=== PATIENT | female | born 1955 | race Caucasian/White ===

== ENCOUNTER 2016-06-28 10:23 | Observation (INO) | payer OTHER ==
[2016-06-28] VITALS (21 sets, daily range): BP systolic 119–193; BP diastolic 62–132; PULSE 67–108; RESP 6–21; O2SAT 71–98
[~2016-06-28] VITALS: Ht 167.6 cm; Wt 108.3 kg
[2016-06-28] MEDS: Lactated Ringer's 1,000 ML IV SCH ×2 (05:00→12:02)
[~2016-06-28 10:23] MED LIST: ASCO100089 PO; ASPI325T32 PO; ATOR20TA PO; CHOL100045 PO; CHONDROITIN PO; CeFAZolin Inj 2 GM in IV Premix 1 EACH IV ONE; ECHI380C PO; GLUC100016 PO; LEVO100T6 PO; METH4TAB PO; MULT-1018 PO; MV,C400T2 PO; OMEG-38 PO; OMEP20TA24 PO; PYR50 PO; SERT100T9 PO; UBID10CA9 PO
[2016-06-28] MEDS ORDERED: CeFAZolin Inj 2 gm / 50mL D5W IV ONE (10:53)
--- NOTE | 2016-06-28 11:30 | PCM.HPANE ---
Patient Data Date of Service: Jun 28, 2016 Surgeon Admitting Provider: Attending Provider:Gianfranco Monroe MD Primary Care Physician:Nati Melendez Other Provider: Reason for Visit Right Rotator Cuff Tear Ht/WT & BMI Height (Feet): 5 Height (Inches): 6 Weight (Kilograms): 102 Body Mass Index 36.00 Allergies Coded Allergies: TAPE (Verified Allergy, Severe, HIVES (ADHESIVE)-ALSO RXN TO PAPER TAPE, 06/23/16) simvastatin (Verified Adverse Reaction, Severe, MYALGIAS, 06/23/16) Past Anesthesia History Anesthesia History: Denies:: Anesthesia Reactions, Malignant Hyperthermia Diabetes History Hx Diabetes?: No MRSA MRSA: No Medications Blood Thinner: Aspirin Hypertension Medication: No Home Meds Incl Beta Patrice: No Reported Medications Methylprednisolone (Medrol)4 Mg Tablet4 Mg PO DIRECTED PRN For Pain Ref 0 06/23/16 Cholecalciferol (Vitamin D3) (Vitamin D)1,000 Unit Capsule2,000 Unit PO DAILY # 1 BOTTLE Ref 0 06/23/16 Ascorbic Acid (Vitamin C)1,000 Mg Tab.chew1,000 Mg PO DAILY Ref 0 06/23/16 Pyridoxine (Vitamin B-6)50 Mg Kdhzsn05 Mg PO DAILY 06/23/16 Sertraline HCl (Sertraline)100 Mg Farzvn930 Mg PO DAILY 30 Days Ref 0 06/23/16 Omeprazole Magnesium (Prilosec Otc)20 Mg Tablet.dr20 Mg PO DAILY #1 PKG Ref 0 06/23/16 Levothyroxine 100 Mcg Lqnivh100 Mcg PO DAILY For Thyroid Replacement Ref 0 06/23/16 Glucosamine Sulfate 2Kcl (Glucosamine)1,000 Mg Tablet3,000 Mg PO DAILY 06/23/16 [place]-3/Dha/Epa/Fish Oil (Fish Oil 1,000 mg Softgel)1 Each Capsule1 Each PO DAILY 06/23/16 Mv,Ca,Min/FA/Herbal No.157 (Estroven Max Strength Caplet)400 Mcg Wtkdum958 Mcg PO HS 06/23/16 Echinacea (Echinacea Herb)380 Mg Skfnyxu328 Mg PO DAILY 06/23/16 Multivitamin (Multi Vitamin Daily)1 Each Tablet1 Each PO DAILY 30 Days Ref 0 06/23/16 Ubidecarenone (Coenzyme Q10)10 Mg Yzdlnuw89 Mg PO DAILY 06/23/16 [Chondroitin] No Conflict Check2,400 Mg PO DAILY 06/23/16 Atorvastatin (Lipitor)20 Mg Degsmx73 Mg PO DAILY Ref 0 06/23/16 Aspirin 325 Mg Tkndmg946 Mg PO DAILY #1 BOTTLE 06/23/16 Discontinued Reported Medications Cholecalciferol-Expunged Drug, Do Not Renew! (Vitamin D3-Expunged Drug, Do Not Renew!)1,000 Unit Tab.chew1,000 Unit PO DAILY 05/27/12 Multivitamin (Multi-Vitamin Daily)1 Each Tablet1 Each PO DAILY 05/27/12 Echinacea 167 Mg Pocwcv230 Mg PO DAILY 05/27/12 Glucosa Schwab 2KCL/Chondroitin Schwab (Gnp Glucosamine Chondroitin Tb)1 Each Tablet1 Each PO DAILY 05/27/12 Ascorbic Acid-Expunged Drug, Do Not Renew! (Vitamin C-Expunged Drug, Do Not Renew!)500 Mg Higwzq225 Mg PO DAILY #30 TAB 05/27/12 IBUPROFEN-Expunged Drug, Do Not Renew! 200 Mg Tablet1-2 Tab PO Q 4-6HRS PRN #20 TAB INSTRUCTED TO STOP 05/27/12 Aspirin-Expunged Drug, Do Not Renew! 81 Mg Tab.chew81 Mg PO DAILY INSTRUCTED TO STOP 05/27/12 Simvastatin-Expunged Drug, Choose New Med! 40 Mg Bfcmmf65 Mg PO HS INPATIENT MAX DOSE 40 MG 05/22/12 Sertraline-Expunged Drug, Choose New Med! 50 Mg Nsv829 Mg PO DAILY 05/22/12 Omeprazole-Expunged Drug, Do Not Renew! 20 Mg Capcr20 Mg PO DAILY 05/22/12 Levothyroxine-Expunged Drug, Do Not Renew! (Levoxyl-Expunged Drug, Do Not Renew! )100 Mcg Ihmfwc754 Mcg PO DAILY 05/22/12 History History of ENT Problems?: Yes Other HEENT Pertinent History: S/P T&A Hx of Heart Problems?: Yes Cardiovascular History: Positive for:: Chest Pain (08/2013 TESTING ESSENTIALLY NEG) Hypertension (HYPERLIPIDEMIA) Denies:: Irregular Heartbeat Other Cardiac History: C/OF BRUISING EASILY Hx of Respiratory Problem?: Yes Respiratory History: Positive for:: Use of C-PAP Machine (LEE ANN+ W/ CPAP (NOT CURRENTLY USING) SLEEP STUDY 10/2009) Hx Neurologic Problems?: Yes Hx of GI Problems?: Yes Gastrointestinal History: Positive for:: Gastroesphageal Reflux Heartburn Hepatitis (HX HEPATITIS A ANTIBODY +) Liver Disease (FATTY LIVER) Denies:: Gastrointestinal Bleeding (HX PUD) Hx of Problems?: No Female Hx: Positive for:: Endometriosis Problems with Breasts? (S/P EXC RT BREAST CYST, RT BREAST BX/MASTECTOMY FOR CA ) Denies:: Currently Skin History: Denies:: History Skin Disorders? Pressure Ulcers Hx Musculoskeletal Problems?: Yes Musculoskeletal History: Positive for:: Musculoskeletal Trauma (RT ROTATOR CUFF RPR=CURRENT PROBLEM) Osteoarthritis (OSTEOPENIA) Hx of Psycho/Social Problems?: Yes Psycho Social History: Positive for:: Hx Depression Hx Surgeries?: Yes (RT BREAST CYST EXC.,HYST,RT MASTECTOMY,BTL,TONSILLECTOMY, LT CTR) Hx Any Other Health Problems?: Yes Other History: Positive for:: Cancer (RT BREAST 2007) Thyroid Disease Denies:: Endocrine Disease Hospitalization History Blood Transfusions: Denies:: Blood Transfusions Hx Diabetes: No Hx Alcohol Use: NoHx Substance Use: NoHave You Smoked inLast 12 mo: NoApprox How Many Cigarettes/day: 20YR HX Stop/Bang Treated for Sleep Apnea?: No Do You Have a CPAP Machine?: No S-Snoring: Do You Snore Loudly: No T-Tired: feel tired, fatigued: Yes O-Obsered: Observed not breath: Yes P-Blood Pressure: treated: Yes B- Body Mass Index > 35 kg/m2: Yes A- Age over 50: Yes N- Neck Large Circumference: Yes G- Gender Male: No LEE ANN Total Score: 6 LEE ANN Risk Assessment: Low Risk, <3 Yes Risk Assessment Category Category 1A: Patient has history of documented sleep apnea, and HAS NOT received any narcotic, sedative or anesthesia administration during this stay. Category 1B: Patient has history of documented sleep apnea, and HAS received any narcotic , sedative or anesthesia administration during this stay Category 2: Patient has SUSPECTED Obstructive Sleep Apnea, and HAS received any narcotic , sedative or anesthesia administration during this stay. Category 3: Patient has SUSPECTED Obstructive Sleep Apnea and HAS NOT received narcotic, sedative or anesthesia administration during this stay. Category 4: Outpatient in Procedural Areas with known sleep apnea or who screen positive for High Risk via the STOP/BANG questionnaire. Exam Exam Vital Signs Vital Signs Date Time Temp Pulse Resp B/P Pulse Ox O2 Delivery O2 Flow Rate FiO2 06/28/16 11:11 36.6 67 16 140/81 98 Room Air General Appearance: Alert, Oriented X3, Cooperative HEENT/AIRWAY: MP 2, Neck Movement Lungs: Clear to Auscultation, Normal Air Movement Heart: Normal S1, Normal S2, No Murmurs/Rubs/Gallops Plan Impression Patient chart reviewed, patient interviewed and anesthestic plan with risks, benefits, and alternatives discussed, and informed consent obtained. NPO Status: WATER AT 0830 ASA Physical Status: ASA2 Mod Systemic Disease Anesthetic Plan: GA, Regional Block ([facility]/Dr. Neumann) Bene/Risks/Altern/Consents: Yes HP Complete Prior to Induction: Yes Juan Luis Moise DO Jun 28, 2016 11:30
[2016-06-28] MEDS ORDERED: Ketorolac 15 mg/mL Inj IVPUSH ONE (11:50)
[2016-06-28] MEDS ORDERED: HYDROcodone-APAP 5-325 mg Tablet PO PRN (11:50)
--- NOTE | 2016-06-28 11:53 | PCM.ORTHOP ---
Orthopedic Operative Report Date of Service: Jun 28, 2016 Pre Operative Diagnosis right shoulder rotator cuff tear, impingement syndrome, biceps tenosynovitis, acromioclavicular joint arthritis Post Operative Diagnosis right shoulder rotator cuff tear, impingement syndrome, biceps tenosynovitis, acromioclavicular joint arthritis Procedure Right shoulder arthroscopy, rotator cuff repair, biceps tenodesis, subacromial decompression, distal clavicle excision, partial synovectomy Surgeon Surgeon: Gianfranco Monroe MD Assistants: Jerad Castellanos Indication for Procedure right shoulder rotator cuff tear Findings Per dictation Details of Procedure ATTENDANT SELF SERVICE STORE SURGEON: During the operation, the services of physician certified surgical assistant were medically indicated and necessary to provide exposure of the operative site for the surgical procedure and to maintain the limb in a proper position to carry out the operation safely and efficiently. Without the qualified assistant community manager being present, it would have extended the operative procedure and made the procedure technically more difficult to perform. INDICATIONS: The patient is Marina Cordero who is a 60 year old female. The risks, benefits, and alternatives of surgery were discussed with the patient. The risks included but were not limited to infection, bleeding, damage to vessels and nerves, loss of motion, continued pain, complications due to anesthesia including myocardial infarction, stroke, , etc. The patient stated understanding of the nature of the surgical procedure and gave written and verbal consent to proceed. PROCEDURE: The patient was brought into the operating room and placed supine on the operating room table. A interscalene block was placed in the right shoulder for postoperative pain management, followed by the administration of general anesthesia. . The patient was then placed into the lateral decubitus position with the right side up. An axillary role was placed and the legs were padded as necessary to avoid pressure points. The patient was maintained in position with a beanbag evacuation device. A thorough examination of the right shoulder under anesthesia was performed. The patient had 150 degrees of forward elevation and 130 degrees of abduction. In 90 degrees of abduction there was 70 degrees of external rotation and 70 degrees of internal rotation. The shoulder was stable to load-shift testing. The right upper extremity was then prepped and draped in the usual fashion. The arm was suspended with a well-padded sleeve with eight/ten pounds of balanced suspension in the arthroscopic position. A standard posterior portal was made inferior and medial to the posterior corner of the acromion. The incision was made only through skin. The trocar was advanced through the soft tissue with a blunt-tipped obturator. This was inserted into the glenohumeral joint without difficulty. The 4 mm arthroscope was placed through the cannula and attached to the video monitor system. Inflow was achieved using the arthroscopic pump. The pressure was maintained at 35-40 mm of mercury throughout the entire procedure. Once the arthroscope confirmed visualization within the shoulder joint, it was advanced anteriorly into the rotator interval beneath the biceps tendon. A Wissinger lena was then used to create the anterior portal from inside-out. A second anterior stab wound incision was made only through skin and an anterior cannula was placed. A routine arthroscopic survey was begun. Survey: [id number] 2cm X 2cm anterior rotator cuff tear, The biceps was synovitic and was tenotomized and tenodesed to the rotator cuff in the subacromial space. The arm was then placed in the bursoscopy position. Complex surgical procedure: This was an extremely complex surgical procedure which took approximately 30-40 % longer to complete than a standard repair. Without the use of a qualified business banking sales assistant, this surgical procedure would have taken even considerably longer and been unable to be performed arthroscopically. Jacques procedure: Within the subacromial space there was marked fraying on the undersurface of the coracoacromial ligament consistent with impingement. A decision was thus made to proceed with arthroscopic subacromial decompression. Using an RF wand and a motorized shaver the coracoacromial ligament was recessed from the anterior acromial edge. An orientation trough was made along the lateral margin of the acromion, from the anterior corner back to the posterior margin of the AC joint. A sequential subacromial smoothing was carried out, removing approximately 8mm mm of bone corresponding to the preoperative radiographs. Once completed, the AC joint capsule was opened. There was inferior spurring as well as synovitis and arthritic changes at the AC joint and a decision was made to proceed with distal clavicle excision. Using a motorized bur working initially from posteriorly and then anteriorly, the outer 10 mm of the distal clavicle were excised. The arthroscope was then positioned anteriorly within the AC resection site confirming an excellent level of resection. Single anchor supraspinatus repair Attention was then directed to the rotator cuff repair. Using the motorized shaver from both the anterolateral portal and the posterior portal, the free edge of rotator cuff was debrided. The anatomic neck of the tuberosity was then gently abraded, using the motorized shaver and exposing good bone for healing. Via an accessory anterolateral portal, a triple-loaded anchor was inserted, with excellent fixation purchase. The three stitches were then transported across the rotator cuff using a shuttling technique, spacing the sutures equidistantly. Once the sutures were all passed, they were sequentially tied, using SMC knots and alternating half-hitches, which gave excellent loop and knot security. This reduced the rotator cuff back to the anatomic neck. A microfracture was then performed laterally on the tuberosity creating a crimson duvet to aid in tendon healing. The arm was placed through range of motion and the rotator cuff and humeral head moved well as a unit. There was no further evidence for impingement. The subacromial space was irrigated with an additional 500 mL lactated Ringer solution. Excess fluid was drained. Attention was then directed towards biceps tenodesis. The anterior limb of the anchor was used to incorporate the biceps to the bone and the rotator cuff tear. The arm was placed through a range of motion and the rotator cuff and humeral head moved well as a unit. There was no further evidence of impingement. The subacromial space was irrigated with an additional liter of lactated Ringer s solution and excess fluid was drained. The arthroscopic portals were closed with #4-0 Nylon and Steri-Strips. A dry sterile dressing was applied, followed by a neutral rotation sling. The patient was awakened in the operating room and transported to the recovery room in satisfactory condition. The patient appeared to tolerate the procedure well. There were no complications noted. Grafts, Implants: Implants-See Implant Record Complications There were no periprocedural complications identified. Condition Stable Anesthetic Administered: GA Catheters: None Output, Estimated Blood Loss: 5 Blood Admin during surgery: No Surgical Cast or Splint: Other Surgical Specimen Removed: No Specimen sent to Pathology: No copies to: Gianfranco Monroe MD, Christopher L MD Jun 28, 2016 11:53 repair. While visualizing from laterally, a spectrum suture hook was then used from posteriorly to penetrate across the rotator cuff, first posteriorly and then anteriorly. A suture Shuttle Relay system was then used to pass a #1 PDS, #2 Orthocord suture across the rotator cuff tear. The defect in the rotator cuff was then closed using the suture by using a locking sliding knot, followed by alternating half-hitches. Two sutures were placed for this defect, repairing the tendon, closing the defect. Single anchor helix supraspinatus repair Attention was then directed to the rotator cuff repair. Using the motorized shaver from both the anterolateral portal and the posterior portal, the free edge of rotator cuff was debrided. The anatomic neck of the tuberosity was then gently abraded, using the motorized shaver and exposing good bone for healing. Via an accessory anterolateral portal, a triple-loaded anchor was inserted, with excellent fixation purchase. The three stitches were then transported across the rotator cuff using a shuttling technique, spacing the sutures equidistantly. Once the sutures were all passed, they were sequentially tied, using SMC knots and alternating half-hitches, which gave excellent loop and knot security. This reduced the rotator cuff back to the anatomic neck. A microfracture was then performed laterally on the tuberosity creating a crimson duvet to aid in tendon healing. The arm was placed through range of motion and the rotator cuff and humeral head moved well as a unit. There was no further evidence for impingement. The subacromial space was irrigated with an additional 500 mL lactated Ringer solution. Excess fluid was drained. Two anchor helix supraspinatus repair Attention was then directed to the rotator cuff repair. Using the motorized shaver from both the anterolateral portal and the posterior portal, the free edge of rotator cuff was debrided. The anatomic neck of the tuberosity was then gently abraded, using the motorized shaver and exposing good bone for healing. Via an accessory anterolateral portal, two triple-loaded were then inserted with excellent fixation purchase. The 6 stitches from these two anchors were then transported across the rotator cuff spacing the sutures equidistantly. Once the sutures were all passed, they were sequentially tied using SMC knots and alternative half-hitches which gave excellent loop and knot security. This reduced the rotator cuff back to the anatomic neck. A microfracture was then performed laterally on the tuberosity creating a crimson duvet to aid in tendon healing. The arm was then placed through a range of motion. The rotator cuff and humeral head moved well as a unit. There was no further evidence for impingement ARTHROSCOPIC BICEPS TENODESIS Attention was then directed towards biceps tenodesis. With the arthroscope in the lateral viewing portal a motorized shaver was introduced from the anterior working portal, identifying the Mehalik hitch at the top of the bicipital groove. A motorized shaver and VAPR wand was then used inferior from this, debriding the proximal humerus and identifying the falciform ligament. The biceps tendon was then identified and the bicipital sheath was opened using a probe. The groove did reveal evidence of synovitis in this area. With appropriate resting tension maintained using the Mehalik hitch, a percutaneous spinal needle was used to antony the resting position of the biceps tendon, as well as the position for tenodesis at the bottom of the inter-tubercular groove. A blue carli was then used to antony with tendon. An accessory anterior inferior portal was made approximately 6-7 cm from the anterior acromial margin under arthroscopic control. A asyy-dki-oqossq technique was used to spread the soft tissues down to the level of the bicipital groove. The long head of the biceps was then retrieved using a grasper and the tendon was brought out the wound. A #2 Double loaded Fiberwire Thee Net stitch was placed for a length of 1.5 cm from the blue carli marking position in the proximal biceps. This was then sized using the Arthrex biotenodesis set and measured mm. A mm reamer was then selected. A Canuflex cannula was then placed onto the bicipital groove. The biotenodesis guide wire was placed into the proximal humerus at the designated marking position corresponding to the appropriate tension and introduced just to the posterior cortex. The anterior cortex was then reamed using the reamer for a depth of 20 mm. 2 7/64 holes were then created approximately 1.5 cm inferior to the tunnel for suture passing. A Spectrum suture hook was placed through the inferior packing machine pilot can router hole and retrieved out the proximal tunnel. A shuttling technique was carried out passing one suture limb on either side of the long head of the biceps. Tension was then applied to the biceps sutures, reducing and docking the biceps intra-osseously. With the elbow in full extension and the hand in full supination tension was applied to reapproximate the anatomic resting length and the biceps was then secured using an arthroscopic Revo knot, tying the two limbs of the suture together over the biceps tendon. This gave excellent secure fixation. The biceps was then probed and had stable fixation. The arm was placed through a range of motion and the rotator cuff and humeral head moved well as a unit. There was no further evidence of impingement. The subacromial space was irrigated with an additional liter of lactated Ringer s solution and excess fluid was drained. The arthroscopic portals were closed with #4-0 Nylon and Steri-Strips. A dry sterile dressing was applied, followed by a neutral rotation sling. The patient was awakened in the operating room and transported to the recovery room in satisfactory condition. The patient appeared to tolerate the procedure well. There were no complications noted. Grafts, Implants: Implants-See Implant Record Complications There were no periprocedural complications identified. Condition Stable Anesthetic Administered: GA Catheters: None Output, Estimated Blood Loss: 5 Blood Admin during surgery: No Surgical Cast or Splint: Other Surgical Specimen Removed: No Specimen sent to Pathology: No copies to: Gianfranco Monroe MD, Christopher L MD Jun 28, 2016 11:53
[2016-06-28] MEDS ORDERED: fentaNYL-PF 50 mCg/mL 2 mL Inj ONE (12:14)
[2016-06-28] MEDS ORDERED: HYDROmorphone 2 mg/mL Inj ONE (12:14)
[2016-06-28] MEDS ORDERED: Ropivacaine-PF 0.5% 30 mL Inj INJ ONE (12:34)
[2016-06-28] MEDS ORDERED: Lactated Ringer's 500 ML IV PRN (12:54)
[2016-06-28] MEDS ORDERED: Lactated Ringer's 1,000 ML IV SCH (12:54)
[2016-06-28] MEDS ORDERED: Phenylephrine 10,000 mCg/mL Inj IVPUSH PRN (12:55)
[2016-06-28] MEDS ORDERED: fentaNYL-PF 50 mCg/mL 2 mL Inj IVPUSH PRN (12:55)
[2016-06-28] MEDS ORDERED: HYDROmorphone 1 mg/mL Inj IVPUSH PRN (12:55)
[2016-06-28] MEDS ORDERED: Dexamethasone 4 mg/mL Inj IVPUSH PRN (12:55)
[2016-06-28] MEDS ORDERED: Atropine 0.4 mg/mL Inj IVPUSH PRN (12:55)
[2016-06-28] MEDS ORDERED: Ondansetron 2 mg/mL 2 mL Inj IVPUSH PRN ×2 (12:55→16:35)
[2016-06-28] MEDS ORDERED: MetoCLOpramide 5 mg/mL 2 mL Inj IVPUSH PRN (12:55)
[2016-06-28] MEDS ORDERED: Labetalol 5 mg/mL 4 mL Inj IV PRN (12:55)
[2016-06-28] MEDS ORDERED: EPHEDrine Sulfate 50 mg/mL Inj IVPUSH PRN (12:55)
[2016-06-28] MEDS ORDERED: Lactated Ringer's 1,000 ML IV ONE (13:20)
--- NOTE | 2016-06-28 13:48 | PCM.ANEP1 ---
Post Anesthesia Phase 1 PACU Phase 1 Assessment Date of Service: Jun 28, 2016 Vital Signs Vital Signs Date Time Temp Pulse Resp B/P Pulse Ox O2 Delivery O2 Flow Rate FiO2 06/28/16 11:11 36.6 67 16 140/81 98 Room Air Anesthetic Administered: GA Level of Alertness: Drowsy, not talking LAO's with Equal Strength: No (Right ISB ) Pain: No Nausea or Vomiting: No Oxygen Delivery: Non-Rebreather Mask Lungs: Clear to Auscultation, Normal Air Movement Dermatome Level: Full Sensation (Limited by sensorimotor block from R ISB) Summary Nasal airway post extubation involving >10 minutes FiO2 1.0 ventilation in supine position with several expansion breaths for lung recruitment. Regular exchange with rate @14 for transport through 6l simple mask, PACU SPO2 79-88% with progressive improvement as patient emerges. NRB employed with SPO2 to 92% . CXR reveals ATX vs. PNA with substantially elevated R hemidiaphragm. Will continue attempt to wean O2 to determine O2 requirements in face of possible phrenic blockade with discussion with surgeon about potential for OBV admission for monitoring/O2 support. Juan Luis Moise DO Jun 28, 2016 13:48
--- NOTE | 2016-06-28 15:17 | DRSVH ---
PROCEDURE: X-RAY CHEST ONE VIEW, PORTABLE ([id number]) INDICATIONS: LOW O2 SATURATION TECHNIQUE: One view of the chest was acquired. COMPARISON: [facility], , CHEST 1VW (PORTABLE), 08/29/2013, 9:11. FINDINGS: Surgical changes and devices: None. Lungs and pleura: Streaky opacities in the lung bases bilaterally which could represent atelectasis o r pneumonia. Masslike opacities noted in the mesial aspect of the right upper lobe. Mediastinum: Mediastinal contours appear normal. Right hemidiaphragm is elevated. Heart size is norm al. Bones and chest wall: No suspicious bony lesions. Overlying soft tissues appear unremarkable. IMPRESSION: 1. Streaky opacities in lung bases bilaterally with atelectasis versus pneumonia. 2. Masslike opacity in the mesial aspect of the right upper lobe. Neoplastic process cannot be exclud ed. Recommend standard 2 view of the chest for further evaluation. 3. Right hemidiaphragm elevation. Dictated by: Karmen Gr MD, PhD on 06/28/2016 at 15:14 Approved by: Karmen Gr MD, PhD on 06/28/2016 at 15:15
[2016-06-28] MEDS ORDERED: Polyethylene Glycol (PEG) 17 Gm Powder PO PRN (16:35)
[2016-06-28] MEDS ORDERED: Alum-Mag Hydrox-Simeth 30 mL Suspension PO PRN (16:35)
--- NOTE | 2016-06-28 18:05 | PCM.ANEP2 ---
Post Anesthesia Evaluation ASA/CMS Post Anesthesia Date of Service: Jun 28, 2016 VS in Patient's Normal Range?: No (High O2 requirements under spontaneous ventilation; NRB requirement) Resp Stable; Airway Patent?: No CV Function & Hydration Stable: Yes Mental Status Recovered?: Yes Pain control Satisfactory?: Yes N/V Control Satisfactory?: Yes Additional Comments Patient requires stepdown placement for continuous SPO2 monitoring. Pt stable when NRB mask delivering High-FiO2 atmosphere, but desaturates when on RA. Juan Luis Moise DO Jun 28, 2016 18:05
--- NOTE | 2016-06-28 18:14 | NUR ---
Admit to [facility]: patient was transferred from OR recovery at about 1750. Pt is A&O X3. Tele: ST. HR 107. Denies CP or SOB. SpO2: 99-100% on non-rebreather. L AV PIV patent, NS TKO. R arm in brace. Reports 6/10 pain to R arm. Admit hospitalist notified of patient arrival to unit.
--- NOTE | 2016-06-28 20:26 | PCM.HPMED ---
Subjective Date of Service Jun 28, 2016 Primary Provider: Admitting Physician: Gianfranco Monroe MD Primary Care Physician: Nati Melendez Attending Physician: Gianfranco Monroe MD Chief Complaint: Acute respiratory failure following nerve block for right rotator cuff repair History of Present Illness: 60-year-old female came in for right rotator cuff repair she has as history of sleep apnea. Nerve block must been in proximity of left phrenic nerve, called postoperatively from PACU patient hypoxemic and or throw/anesthesia desire overnight admission and have requested the hospitalists admit the patient. This was planned as an outpatient procedure. Review of Systems: Patient was fine coming in this morning, a bit confused and painful postoperatively Gen.: No fevers chills weight loss weight gain Eyes: no visual disturbances or blurring vision HEENT: No nose/throat drainage, no pain in ears or throat, no hearing loss Lymph: No lymph nodes noted Cardiac: No chest pain, orthopnea, PND, palpitations , pedal edema or dyspnea on exertion Pulmonary: no cough, wheezing or bringing up of sputum GI: No anorexia nausea vomiting blood or black in the stool : no dysuria hematuria urinary frequency or decrease in urine output Musculoskeletal: Joint swelling no joint pain no new muscle aches or back pain Neuro: No syncope, seizures no loss of consciousness no new focal weakness, numbness or tingling Psychiatric: New new anxiety insomnia or depression Endocrine: No new heat or cold intolerances polyuria or polydipsia Hematology: No lymphadenopathy or easy bleeding or bruising noted skin: No new rashes, stasis dermatitis Allergies Coded Allergies: TAPE (Verified Allergy, Severe, HIVES (ADHESIVE)-ALSO RXN TO PAPER TAPE, 06/23/16) simvastatin (Verified Adverse Reaction, Severe, MYALGIAS, 06/23/16) Home Medications Atorvastatin 20 mg daily Aspirin 325 mg daily Levoxyl 100 g daily Prilosec 20 mg daily Seteraline 100 mg daily Multivitamin daily Fish oil daily Pyridoxine 50 mg daily Code Q10 10 mg daily Chondroitin daily PMH Hyperlipidemia Hypothyroid GERD Depression Breast cancer Endometriosis Surg Hx bilateral mastectomy 2006, Hysterectomy 1990s Salpingo-oophorectomy Revision for adhesions Family Hx coronary artery disease father and brothers Social patient quit tobacco in the 80s drinks minimally lives at home independently her at the bedside Social History Hx Alcohol Use: No Hx Substance Use: No Smoking Status: Former Smoker Exam Vital Signs Vital Sign - Last Date Time Temp Pulse Resp B/P Pulse Ox O2 Delivery O2 Flow Rate FiO2 06/28/16 18:09 105 06/28/16 18:08 36.9 21 148/101 98 Non-Rebreather 10.00 Exam Gen.- Obese female lying in bed somewhat drowsy but arousable to A+ O 3 no apparent distress. Eyes- open conjunctiva clear, pupils equal nonicteric Mouth- oral mucosa moist, no exudate dentition intact ENT- ears normal, nose normal Neck- supple/trach midline CVS- RRR no murmur or gallop Lungs- CTA GI- NABS/NT soft Musc- moving 4 no obvious deformity, right shoulder in dressing w/ post rotator repair stabilizing equipment in place Neuro- cranial nerves II through XII intact to gross examination, nonfocal Skin- warm and dry, no rashes/lesions/wounds noted Psych- pleasant and appropriate, Lab and Diagnostics Labs CBC, complete metabolic ordered as well as TSH X-Rays, CTs and MRIs Portable CXR concerning for possible pneumonia and other issues have ordered repeat PA and lateral as recommended. Concurrently reviewed by myself Assessment & Plan 60-year-old female admitted post-rotator cuff repair due to acute respiratory failure thought to be secondary to paralysis of phrenic nerve that was close to where nerve block was done for patient's procedure. Acute hypoxic respiratory failure- secondary to above and obese patient with obstructive sleep apnea. Observing overnight and giving supplemental oxygen as needed s/p r rotator cuff repair-per ortho LEE ANN- patient does not usually use her home CPAP but I am encouraging her to use it and she has not here lipids family history of CAD- continue atorvastatin from home, she can resume aspirin that is prophylactic on discharge GERD- continue PPI Depression/anxiety- continue Zoloft Prophylaxis- patient has support hose on for DVT, no heparin was ordered postop I am not going to order it now. GI patient's on PPI Disposition- full code from home No labs were done that we have access to so I am ordering those stat now and will consider ordering them for the morning depending on the results when they are reviewed. Also repeat CXR ordered as recommended. Hopefully this patient will be discharging home first thing in the morning with hypoxia resolved as nerve block wears off. Time spent 45min Kyle Luz MD Jun 28, 2016 20:26
[2016-06-28 21:24] LABS: BASOPHILS % (AUTO) 0.1 % (0-3); EOSINOPHILS % (AUTO) 0 % (0-5); MONOCYTES % (AUTO) 2.7 % (4-12); Mean Corpuscular Hemoglobin 29.1 pg (27.0-35.0); Mean Corpuscular Volume 88.9 fL (81-100); NEUTROPHILS % (AUTO) 90.7 % (40-74); Platelet Count 195 bil/L (150-400)
[2016-06-28] MEDS: HYDROcodone-APAP 5-325 mg Tablet PO PRN (22:36)
[2016-06-29] MEDS: HYDROcodone-APAP 5-325 mg Tablet PO PRN ×3 (02:34→12:17)
[2016-06-29 03:05] VITALS: BP 110/64; PULSE 82; RESP 11; O2SAT 94
--- NOTE | 2016-06-29 03:53 | NUR ---
PAIN/O2 Pt c/o 6/10 headache and 4/10 shoulder pain. Pt currently in right arm splint r/t shoulder surgery. Pt received 2 tabs PRN 5-325mg Sherrill x2. Pt was on 10L oxy-mask @ start of shift r/t resp. failure secondary to paralysis of phrenic nerve from nerve block. Pt currently @ 2L oxy-mask sating mid 90's. Vitals stable, good urine output. Pt shows no signs of distress at this time. Plan is for pt to go home the AM.
[2016-06-29] MEDS ORDERED: Pantoprazole 40 mg ER24 Tablet PO SCH (06:30)
[2016-06-29 07:18] VITALS: BP 147/89; PULSE 83; RESP 16; O2SAT 93
[2016-06-29 07:52] VITALS: PULSE 76
--- NOTE | 2016-06-29 08:52 | PCM.PNORTH ---
Subjective Date of Service: Jun 29, 2016 Visit Information: Reason for Visit Right Rotator Cuff Tear Surgery/Surgery Date Post-Op Day # Date of Admission: Jun 28, 2016 at 18:08 Hospital Day # Subjective Found patient awake and alert this morning and sitting up in bed. No complaints of pain at this time. Patient does mention some minor "tightness" at the area of her diaphragm. As I entered the room patient had no oxygen on at that time. Discussed with patient her current condition and likelihood of discharge if she is well this morning. Advised patient that hospitalist service would be checking with her today to check her medically and would discharge her ideally this afternoon if she is well. I have discussed range of motion at the elbow wrist and hand with the patient this morning and advised her to keep her shoulder still and remain in her sling 24 7. Postop General: No Complaints, No Shortness of Breath Pain Management: PO Objective Exam Objective Alert and oriented 3 and pleasant. Interoperative dressing is moderately soiled. Compartments of the right upper extremity are soft and nontender Mobility and sensation are intact at the right upper extremity distally in the wrist hand and fingers. Flower is absent. Patient on room air at this time. 9 PM chemistries from last night are good. Patient is currently on telemetry. Vital Signs and I/O Vital Sign - Last Date Time Temp Pulse Resp B/P Pulse Ox O2 Delivery O2 Flow Rate FiO2 06/29/16 07:18 36.9 83 16 147/89 93 Room Air 06/29/16 03:05 8.00 Intake and Output 06/28/16 06/28/16 06/29/16 Cumulative From/Thru 15:00 23:00 07:00 06/23/16 09:15 - 06/29/16 05:02 Intake Total 1350 ml 200 ml 300 ml 1850 ml Output Total 5 ml 700 ml 705 ml Balance 1345 ml 200 ml -400 ml 1145 ml Intake Oral 300 ml 300 ml IV Total 1350 ml 200 ml 1550 ml Output Urine Total 700 ml 700 ml Estimated Blood Loss 5 ml 5 ml # Bowel Movements 0 0 Lab & Micro Results Laboratory Tests Test 06/28/16 21:10 White Blood Count 18.1th/mm3 (3.8-10.1) Red Blood Count 4.23mil/mm3 (3.90-5.20) Hemoglobin 12.3g/dL (12.0-15.6) Hematocrit 37.6% (35.0-46.0) Mean Corpuscular Volume 88.9fL (81-100) Mean Corpuscular Hemoglobin 29.1pg (27.0-35.0) Mean Corpuscular Hemoglobin Concent 32.7% (32.0-37.0) Red Cell Distribution Width 13.9% (12.3-15.4) Platelet Count 195bil/L (150-400) Neutrophils (%) (Auto) 90.7% (40-74) Lymphocytes (%) (Auto) 6.3% (14-46) Monocytes (%) (Auto) 2.7% (4-12) Eosinophils (%) (Auto) 0% (0-5) Basophils (%) (Auto) 0.1% (0-3) Sodium Level 137mEq/L (134-144) Potassium Level 4.4mEq/L (3.5-5.2) Chloride Level 98mEq/L (97-108) Carbon Dioxide Level 25mmol/L (18-29) Blood Urea Nitrogen 17mg/dL (8-27) Creatinine 0.63mg/dL (0.57-1.00) Estimat Glomerular Filtration Rate 138mL/min (>59) Glucose Level 167mg/dL (60-99) Calcium Level 9.1mg/dL (8.5-10.1) Total Bilirubin 0.4mg/dL (0.0-1.2) Aspartate Amino Transf (AST/SGOT) 25U/L (0-50) Alanine Aminotransferase (ALT/SGPT) 20U/L (0-32) Alkaline Phosphatase 75U/L (25-165) Total Protein 6.8g/dL (6.4-8.4) Albumin 4.3g/dL (3.4-5.0) Thyroid Stimulating Hormone (TSH) 0.989uIU/mL (0.450-4.500) Result Diagram: 06/28/16210906/28/162109 General Appearance: Alert, Oriented X3, Cooperative, No Acute Distress Extremities: No Compartment Syndrom Noted Postop Sensory Motor: Distal Motor Intact, Movement in Fingers, Distal Sensation Intact Catheters: None Assessment & Plan Impression Patient is a 60-year-old female who has undergone a right shoulder procedure on 06/28/[address] Gianfranco Monroe. It is believed that the patient suffered some anesthesia about the phrenic nerve during her right arm block which created a hemidiaphragm. Patient is apparently doing well this morning. Problems: Plan Postop day #1 from a right rotator cuff repair with biceps tenodesis, subacromial decompression, distal clavicle excision and partial synovectomy on 06/28/[address] Gianfranco guillen. Strict nonweightbearing at the right upper extremity with no pushing, pulling or lifting. No range of motion at the right shoulder.. Patient should come out out of her sling 3 times a day for gentle elbow wrist and hand range of motion. Wear sling 24 7 except for range of motion. Reinforce dressing prior to discharge and leave dressing in place until patient is seen in the office in 2 weeks. Keep dressing and wound clean, dry and covered until seen in office in 2 weeks. If the dressing becomes soiled or loose patient should call office and be seen for dressing change in the interim. Follow printed shoulder rehabilitation protocol per Dr. Monroe. Start physical therapy protocol #1. Flower absent. O2 sats 93-94 on room air. Spoke with [facility] hospitalist service this morning and he will discharge patient ideally today after he has checked her out and if she is ready for discharge. Follow-up in 2 weeks at [facility] orthopedic clinic with Dr. Gianfranco Monroe for suture removal, Steri-Strip application and two-view x-rays. Follow-up at 6 weeks, 12 weeks and 18 weeks with mid level provider for monitoring and management of established shoulder protocol per Dr. Monroe Follow-up L [facility] orthopedic clinic with Dr. Gianfranco Monroe at 5 months postop for final checkup and release. Anticipate discharge today by hospitalist service on 06/29/2016 if patient is medically appropriate to do so. VTE Prophylaxis: SCDs José Miguel Norris PA-C Jun 29, 2016 08:52
--- NOTE | 2016-06-29 11:16 | PCM.DIMED ---
Discharge Instructions Date of Service Jun 29, 2016 Dates of Hospitalization Jun 28, 2016 at 18:08 Discharge Diagnosis Discharge Diagnosis 1. Acute hypoxic respiratory failure, postoperative. Likely related to transient phrenic nerve dysfunction from phrenic nerve block. Resolved. 2. Possible pneumonia. 3. Right shoulder procedure 4. Hypothyroidism 5. Hyperlipidemia 6. Depression. 7. GERD Activity Other Call your provider Fever or Chills (restrictions as noted in orthopedic discharge paperwork.), Shortness of breath Patient Instructions We will have take antibiotics for one week and then see Nati Melendez with follow- up chest x-ray in one week. Follow-up Provider: Nati Melendez Follow-up with PCP in: 1 week Mumtaz Rowe MD Jun 29, 2016 11:16
[2016-06-29] MEDS ORDERED: HYDR-4003 PO (11:17)
[2016-06-29] MEDS ORDERED: DOXY100T2 PO (11:17)
--- NOTE | 2016-06-29 11:17 | NUR ---
Social Work: Screen/Discharge D: Per EMR review, pt is a 60 year old female admitted for Right Rotator Cuff Tear. Pt is [employer] insurance. PCP is DAMEON Richard. NOK Is Kendall Cordero, spouse. Advanced directives on hard chart. Readmit score not entered at this time. Pt lives in [place] with her spouse and is I. Pt has been I during admission. Pt discussed in am rounds. Pt is medically stable for discharge home today. Ortho has cleared pt. A: Pt who is I at [place]. P: Anticipate pt to discharge home today via POV; no sw needs at this time. Coleen Aguilar MSW
--- NOTE | 2016-06-29 12:21 | NUR ---
Discharge Note Pt expressed understanding of all discharge instructions, medications/Rx, follow up appt. Reviewed s/sx to report to MD and Care Notes provided. Pt discharged home with all belongings accompanied by family.
--- NOTE | 2016-06-29 17:05 | DRSVH ---
PROCEDURE: X-RAY CHEST, TWO VIEWS ([id number]) INDICATIONS: hypoxia abnormal single view TECHNIQUE: 2 views of the chest were acquired. COMPARISON: [facility], CR, XR CHEST 1VW (PORTABLE), 06/28/2016, 14:18. FINDINGS: Surgical changes and devices: None. Lungs and pleura: Streaky opacities in the lung bases bilaterally which could represent atelectasis o r pneumonia. Masslike opacities noted in the mesial aspect of the right upper lobe unchanged. Right hemidiaphragm is chronically elevated. Mediastinum: Mediastinal contours appear normal. Heart size is enlarged. Bones and chest wall: No suspicious bony lesions. Overlying soft tissues appear unremarkable. IMPRESSION: 1. Asymmetric right apical opacity redemonstrated and mass cannot be excluded. If indicated noncontr ast chest CT scan could be performed. 2. Streaky opacity involving the lung bases unchanged consistent with atelectasis versus pneumonia. Dictated by: Judd Nelson [facility] Interpreted: Karmen Gr MD on 06/29/2016 at 10:10 Transcribed by: MAKENNA on 06/29/2016 at 10:12 Approved by: Karmen Gr MD, PhD on 06/29/2016 at 17:00
--- NOTE | 2016-06-30 16:46 | PCM.DC.MED ---
Discharge Summary Date of Service Jun 30, 2016 Dates of Hospitalization Date of Hospital Admission Jun 28, 2016 at 18:08 Date of Discharge: Jun 30, 2016 Providers: Admitting Physician: Gianfranco Monroe MD Primary Care Physician: Nati Melendez Attending Physician: Gianfranco Monroe MD Diagnosis at Time of Discharge Diagnosis at Time of Discharge 1. Acute hypoxic respiratory failure, postoperative. Likely related to transient phrenic nerve dysfunction from phrenic nerve block. Resolved. 2. Possible pneumonia. 3. Right shoulder procedure 4. Hypothyroidism 5. Hyperlipidemia 6. Depression. 7. GERD Procedures XRay, CTs & MRIs Portable CXR concerning for possible pneumonia and other issues have ordered repeat PA and lateral as recommended. Concurrently reviewed by myself Other Diagnostics Rotator cuff repair on June 28 as a scheduled elective procedure Brief History 60-year-old female came in for right rotator cuff repair she has as history of sleep apnea. Nerve block must been in proximity of left phrenic nerve, called postoperatively from PACU patient hypoxemic and or throw/anesthesia desire overnight admission and have requested the hospitalists admit the patient. This was planned as an outpatient procedure. Hospital Course 60-year-old female admitted post-rotator cuff repair due to acute respiratory failure thought to be secondary to paralysis of phrenic nerve that was close to where nerve block was done for patient's procedure. Acute hypoxic respiratory failure- secondary to above and obese patient with obstructive sleep apnea. Observing overnight and giving supplemental oxygen as needed s/p r rotator cuff repair-per ortho LEE ANN- patient does not usually use her home CPAP but I am encouraging her to use it and she has not here lipids family history of CAD- continue atorvastatin from home, she can resume aspirin that is prophylactic on discharge GERD- continue PPI Depression/anxiety- continue Zoloft Prophylaxis- patient has support hose on for DVT, no heparin was ordered postop I am not going to order it now. GI patient's on PPI Disposition- full code from home No labs were done that we have access to so I am ordering those stat now and will consider ordering them for the morning depending on the results when they are reviewed. Also repeat CXR ordered as recommended. Hopefully this patient will be discharging home first thing in the morning with hypoxia resolved as nerve block wears off. Hospital course. This patient was admitted for an elective rotator cuff repair. She developed acute hypoxic respiratory failure postoperatively. There is concern that she may have had transient paresis of her phrenic nerve. He does have a history of obstructive sleep apnea as well as obesity with a BMI of 38.5. The patient is admitted to the second floor after being observed in the postoperative recovery area. There she was supported with supplemental oxygen and improved without any further event intervention. She did have one fever in the evening of hospitalization. A chest x-ray suggested a possible infiltrate and there is another finding which was an abnormal focus stent could not be delineated from mass. However this chest x-ray is difficult because her right arm sling. On the day of discharge she is felt to be stable for discharge but the decision was made to treat her empirically for pneumonia for an additional 7 days of an antibiotic and then to follow up in clinic in approximately 2 weeks with repeat chest x-ray to see if there is any evidence of infiltrate or the other artifacts seen while in the hospital. Exam Vital Signs (Last) Date Time Temp Pulse Resp B/P Pulse Ox O2 Delivery O2 Flow Rate FiO2 06/29/16 07:52 76 06/29/16 07:18 36.9 16 147/89 93 Room Air 06/29/16 03:05 8.00 Exam Patient was seen and examined on the day of discharge. Test 06/28/16 21:10 White Blood Count 18.1th/mm3 (3.8-10.1) Red Blood Count 4.23mil/mm3 (3.90-5.20) Hemoglobin 12.3g/dL (12.0-15.6) Hematocrit 37.6% (35.0-46.0) Mean Corpuscular Volume 88.9fL (81-100) Mean Corpuscular Hemoglobin 29.1pg (27.0-35.0) Mean Corpuscular Hemoglobin Concent 32.7% (32.0-37.0) Red Cell Distribution Width 13.9% (12.3-15.4) Platelet Count 195bil/L (150-400) Neutrophils (%) (Auto) 90.7% (40-74) Lymphocytes (%) (Auto) 6.3% (14-46) Monocytes (%) (Auto) 2.7% (4-12) Eosinophils (%) (Auto) 0% (0-5) Basophils (%) (Auto) 0.1% (0-3) Sodium Level 137mEq/L (134-144) Potassium Level 4.4mEq/L (3.5-5.2) Chloride Level 98mEq/L (97-108) Carbon Dioxide Level 25mmol/L (18-29) Blood Urea Nitrogen 17mg/dL (8-27) Creatinine 0.63mg/dL (0.57-1.00) Estimat Glomerular Filtration Rate 138mL/min (>59) Glucose Level 167mg/dL (60-99) Calcium Level 9.1mg/dL (8.5-10.1) Total Bilirubin 0.4mg/dL (0.0-1.2) Aspartate Amino Transf (AST/SGOT) 25U/L (0-50) Alanine Aminotransferase (ALT/SGPT) 20U/L (0-32) Alkaline Phosphatase 75U/L (25-165) Total Protein 6.8g/dL (6.4-8.4) Albumin 4.3g/dL (3.4-5.0) Thyroid Stimulating Hormone (TSH) 0.989uIU/mL (0.450-4.500) Discharge Medications Discharge Medications ([Chondroitin]) 2,400 MG PO DAILY (Reported) Ascorbic Acid (Vitamin C) 1,000 Mg Tab.chew 1,000 MG PO DAILY (Reported) Aspirin (Aspirin) 325 Mg Tablet 325 MG PO DAILY (Reported) Atorvastatin (Lipitor) 20 Mg Tablet 20 MG PO DAILY (Reported) Cholecalciferol (Vitamin D3) (Vitamin D) 1,000 Unit Capsule 2,000 UNIT PO DAILY (Reported) Doxycycline Hyclate (Doxycycline Hyclate) 100 Mg Tablet 100 MG PO BID Prescribed by: MUMTAZ ROWE MD Echinacea (Echinacea Herb) 380 Mg Capsule 380 MG PO DAILY (Reported) Glucosamine Sulfate 2Kcl (Glucosamine) 1,000 Mg Tablet 3,000 MG PO DAILY ( Reported) Levothyroxine (Levothyroxine) 100 Mcg Tablet 100 MCG PO DAILY (Reported) Multivitamin (Multi Vitamin Daily) 1 Each Tablet 1 EACH PO DAILY (Reported) Mv,Ca,Min/FA/Herbal No.157 (Estroven Max Strength Caplet) 400 Mcg Tablet 800 MCG PO HS (Reported) Benedict-3/Dha/Epa/Fish Oil (Fish Oil 1,000 mg Softgel) 1 Each Capsule 1 EACH PO DAILY (Reported) Omeprazole Magnesium (Prilosec Otc) 20 Mg Tablet.dr 20 MG PO DAILY (Reported) Pyridoxine (Vitamin B-6) 50 Mg Tablet 50 MG PO DAILY (Reported) Sertraline HCl (Sertraline) 100 Mg Tablet 100 MG PO DAILY (Reported) Ubidecarenone (Coenzyme Q10) 10 Mg Capsule 10 MG PO DAILY (Reported) As needed Hydrocodone-Acetaminophen 5-325 mg (Hydrocodone-Acetaminophen 5-325 mg) 1 Each Tablet 1-2 TABLET PO Q4H PRN PRN For Moderate Pain Prescribed by: MUMTAZ ROWE MD Followup Plan Disposition: Home Discharge Activity: Other Patient Instructions We will have take antibiotics for one week and then see Nati Melendez with follow- up chest x-ray in one week. Follow-up Provider: Nati Melendez Follow-up with PCP in: 1 week Time spent 40 minutes Mumtaz Rowe MD Jun 30, 2016 16:46
== END 2016-06-29 12:15 | disposition home or self-care (01) ==
LOC: SAS 10:23 → PCC 18:08
PROVIDERS: ADMIT Orthopaedic Surgery; ATTEND Orthopaedic Surgery
PROC: 0LS14ZZ Reposition Right Shoulder Tendon, Percutaneous Endoscopic Approach (ICD-10-PCS; 2016-06-28)
PROC: 0PB94ZZ Excision of Right Clavicle, Percutaneous Endoscopic Approach (ICD-10-PCS; 2016-06-28)
PROC: 0RNJ4ZZ Release Right Shoulder Joint, Percutaneous Endoscopic Approach (ICD-10-PCS; 2016-06-28)
PROC: 0LQ14ZZ Repair Right Shoulder Tendon, Percutaneous Endoscopic Approach (ICD-10-PCS; principal; 2016-06-28 12:30)
DX: M75.111 Incomplete rotator cuff tear or rupture of right shoulder, not specified as traumatic (principal); J95.821 Acute postprocedural respiratory failure; G97.81 Other intraoperative complications of nervous system; G58.8 Other specified mononeuropathies; M75.41 Impingement syndrome of right shoulder; M75.21 Bicipital tendinitis, right shoulder; M19.011 Primary osteoarthritis, right shoulder; Z87.891 Personal history of nicotine dependence; Y83.8 Other surgical procedures as the cause of abnormal reaction of the patient, or of later complication, without mention of misadventure at the time of the procedure; Y79.3 Surgical instruments, materials and orthopedic devices (including sutures) associated with adverse incidents; Y92.234 Operating room of hospital as the place of occurrence of the external cause; G47.33 Obstructive sleep apnea (adult) (pediatric); E66.9 Obesity, unspecified; E78.5 Hyperlipidemia, unspecified; K21.9 Gastro-esophageal reflux disease without esophagitis; Z85.3 Personal history of malignant neoplasm of breast; Z90.13 Acquired absence of bilateral breasts and nipples; F32.9 Major depressive disorder, single episode, unspecified; Z90.710 Acquired absence of both cervix and uterus; Z79.82 Long term (current) use of aspirin; F41.9 Anxiety disorder, unspecified; Z68.38 Body mass index [BMI] 38.0-38.9, adult
CPT/HCPCS: 29824; 29826; 29827; 29828; 36415; 71010; 71020; 76942; 80053; 84443; 85025; G0378; G0379; J0690; J1170; J2250; J2795; J3010; J7120